=== PATIENT | female | born 1975 | race Hispanic/Latino ===

== ENCOUNTER 2019-07-11 15:32 | Emergency (ER) | payer SELFPAY ==
[2019-07-11] MEDS ORDERED: NA CHLORIDE 0.9% 1,000 ML ONE (16:43)
[2019-07-11 17:02] LABS: Urine Blood NEGATIVE (NEG); Urine Glucose 3+ (NEG); Urine Protein NEGATIVE (NEG); Urine pH 5.5 (5.0-7.0)
[2019-07-11 17:04] LABS: Basophils % 0.4 % (0-1.3); Hematocrit 35.3 % (36.0-45.0); Lymphocytes % 22.1 % (15.3-44.8); MPV 9.3 fL (7.6-11.3); RBC Red Blood Cell Count 5.15 M/uL (3.86-4.86)
[2019-07-11 17:15] LABS: ALT/SGPT 106 U/L (12-78); AST/SGOT 105 U/L (15-37); Albumin 3.5 g/dL (3.4-5.0); Alkaline Phosphatase 134 U/L (45-117); BUN Blood Urea Nitrogen 8 mg/dL (7-18); Bicarbonate 24 mmol/L (21-32); Bilirubin Total 0.1 mg/dL (0.2-1.0); Glucose Level 298 mg/dL (74-106); Potassium 3.7 mmol/L (3.5-5.1); Protein, Total 6.8 g/dL (6.4-8.2); Sodium Level 138 mmol/L (136-145)
[2019-07-11 17:33] LABS: Lipase 114 U/L (73-393)
[2019-07-11 17:44] LABS: Blood Morphology Comment NOTED (NOT SEEN); Platelet Estimate ADEQ; Urine White Blood Cell Casts OK
--- NOTE | 2019-07-11 17:45 | RAD REPORT ---
EXAM DESCRIPTION: RAD - Chest Pa And Lat (2 Views) - 07/11/2019 5:12 pm CLINICAL HISTORY: COUGHcough, dizziness, diabetes COMPARISON: None. TECHNIQUE: PA and lateral views of the chest were obtained. FINDINGS: The lungs are clear. Heart size is normal and central vasculature is within normal limit s. No pleural effusion or pneumothorax seen. No acute bony finding noted. No aortic abnormality. IMPRESSION: No acute cardiopulmonary process.
--- NOTE | 2019-07-11 18:53 | ER ---
Nurse's Notes [facility] Name: Annie Cunha Age: 44 yrs Sex: Female : 1975 Arrival Date: 07/11/2019 Time: 15:34 Bed 18 Private MD: Diagnosis: Acute upper respiratory infection, unspecified;Headache;Malaise and fatigue;Hyperglycemia, unspecified Presentation: 07/11 16:00 Presenting complaint: Patient states: Dizziness and headache for the past 2 days. aj1 Denies recent head injury. Denies fever. Patient states that she is diabetic but she stopped taking her diabetes medication because she did not feel she was having any problems with her diabetes anymore. Transition of care: patient was not received from another setting of care. Onset of symptoms was July 11, 2019. Risk Assessment: Do you want to hurt yourself or someone else? Patient reports no desire to harm self or others. Initial Sepsis Screen: Does the patient meet any 2 criteria? HR > 90 bpm. No. Patient's initial sepsis screen is negative. Does the patient have a suspected source of infection? No. Patient's initial sepsis screen is negative. Care prior to arrival: None. 16:00 Method Of Arrival: Ambulatory aj1 16:00 Acuity: WILIAN 3 aj1 Triage Assessment: 16:05 Headache History: Denies prior headaches. General: Appears in no apparent distress. aj1 comfortable, Behavior is calm, cooperative, appropriate for age. Pain: Complains of pain in top of head, right nondenominational and left nondenominational Pain currently is 9 out of 10 on a pain scale. Pain began 2-3 days ago. Also complains of nausea. Neuro: Level of Consciousness is awake, alert, obeys commands, Oriented to person, place, time, situation, Moves all extremities. Weakness Gait is steady, Speech is normal, Facial symmetry appears normal, Reports dizziness, headache. Cardiovascular: Patient's skin is warm and dry. Respiratory: Airway is patent Respiratory effort is even, unlabored, Respiratory pattern is regular, symmetrical. 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 - Social history:: Smoking status: Patient/guardian denies using tobacco. - Ebola Screening: : Patient denies travel to an Ebola-affected area in the 21 days before illness onset. Screenin:30 Abuse screen: Denies threats or abuse. Nutritional screening: No deficits noted. em Tuberculosis screening: No symptoms or risk factors identified. Fall Risk None identified. Assessment: 16:30 General: Appears in no apparent distress. comfortable, Behavior is calm, cooperative, em Reports fever for 1-2 days, fatigue for 2-3 days. Pain: Complains of pain in left nondenominational and right nondenominational and top of head Pain currently is 0 out of 10 on a pain scale. at worst was 9 out of 10 on a pain scale. Pain began 2-3 days ago. Neuro: Level of Consciousness is awake, alert, obeys commands, Oriented to person, place, time, situation, Appropriate for age Farmer Vegetable are equal bilaterally Moves all extremities. Gait is steady, Speech is normal, Facial symmetry appears normal, Pupils are PERRLA, Intact Reports dizziness, headache. Cardiovascular: Reports shortness of breath, Denies chest pain, Capillary refill < 3 seconds Patient's skin is warm and dry. Respiratory: Airway is patent Respiratory effort is even, unlabored, Respiratory pattern is regular, symmetrical, Breath sounds are clear bilaterally. GI: Abdomen is flat, Reports nausea, Patient currently denies vomiting. Derm: Skin is intact, is healthy with good turgor, Skin is pink, warm \T\ dry. Musculoskeletal: Capillary refill < 3 seconds, Range of motion: intact in all extremities. 16:30 Reassessment: I agree with assessment completed by Alessandro Thrasher LVN . aa5 17:30 Reassessment: Patient appears in no apparent distress at this time. Patient and/or em family updated on plan of care and expected duration. Pain level reassessed. Patient is alert, oriented x 3, equal unlabored respirations, skin warm/dry/pink. 18:44 Reassessment: Patient appears in no apparent distress at this time. Patient and/or em family updated on plan of care and expected duration. Pain level reassessed. Patient is alert, oriented x 3, equal unlabored respirations, skin warm/dry/pink. Patient states feeling better. Vital Signs: 16:05 BP 152 / 90; Pulse 85; Resp 18; Temp 97.7; Pulse Ox 100% on R/A; Pain 9/10; aj1 17:25 BP 108 / 89; Pulse 77; Resp 18; Pulse Ox 99% on R/A; em 18:30 BP 105 / 65; Pulse 68; Resp 18; Pulse Ox 99% on R/A; Pain 0/10; em ED Course: 15:34 Patient arrived in ED. as 15:54 [facility] rh1 15:54 Saulo Rudd MD is Attending Physician. rh1 16:03 Triage completed. aj1 16:26 Alessandro Thrasher LVN is Primary Nurse. em 16:30 Patient has correct armband on for positive identification. Bed in low position. Call em light in reach. Pulse ox on. NIBP on. 16:30 Arm band placed on. em 16:48 Initial lab(s) drawn, by me, sent to lab. Urine collected: clean catch specimen, Flu lt1 and/or RSV swab sent to lab. Inserted saline lock: 20 gauge in right antecubital area, using aseptic technique. 16:48 Flu Sent. lt1 17:10 Chest Pa And Lat (2 Views) XRAY In Process Unspecified. EDMS 19:01 No provider procedures requiring assistance completed. IV discontinued, intact, em bleeding controlled, No redness/swelling at site. Pressure dressing applied. Administered Medications: 16:50 Drug: NS 0.9% 1000 ml Route: IV; Rate: 1000 ml; Site: right antecubital; em 18:30 Follow up: Response: No adverse reaction; IV Status: Completed infusion; IV Intake: em 1000ml Point of Care Testing: Ranges: Intake: 18:30 IV: 1000ml; Total: 1000ml. em Outcome: 18:51 Discharge ordered by . rh1 19:01 Discharged to home ambulatory, with family. em 19:01 Condition: good 19:01 Discharge instructions given to patient, family, Instructed on discharge instructions, follow up and referral plans. medication usage, Demonstrated understanding of instructions, follow-up care. 19:03 Patient left the ED. em Signatures: Dispatcher [employer] EDMS Bev Copeland RN RN aj1 Alessandro Thrasher LVN LVN em Maribel Schroeder Audri, RN RN aa5 Corinne Landry, HEAD AND NECK SURGEON HEAD AND NECK SURGEON rh1 Jessica Naylor lt1 Corrections: (The following items were deleted from the chart) 16:05 16:00 Presenting complaint: Patient states: Dizziness and headache for the past 2 days. aj1 Denies recent head injury. Denies fever. aj1 17:24 16:30 General: Appears in no apparent distress. comfortable, Behavior is calm, em cooperative, Reports fever for 1-2 days, em
--- NOTE | 2019-07-11 18:53 | EDPHYS ---
Physician Documentation [facility] Name: Annie Cunha Age: 44 yrs Sex: Female : 1975 Arrival Date: 07/11/2019 Time: 15:34 Bed 18 Private MD: ED Physician Saulo Rudd HPI: 07/11 16:12 This 44 yrs old Female presents to ER via Ambulatory with complaints of rh1 Headache, Dizziness, Weakness. 16:12 The patient complains of pain to the right sabianism and left sabianism. The patient rh1 describes the headache as intermittent, a pressure. Onset: The symptoms/episode began/occurred this morning, and improved just prior to arrival. Associated signs and symptoms: Pertinent positives: dizziness, malaise, sinus congestion, weakness, Pertinent negatives: altered mental status, fever, paresthesias, Photophobia rash, vision changes, vision loss, vertigo. Severity of symptoms: At its worst the pain was moderate, a " 9" out of "10", in the emergency department the pain has resolved, and did so just prior to arrival, took ibuprofen GRANULATING BLENDER. Headache History: The patient has had previous headaches. The symptoms are alleviated by over the counter pain medication, the symptoms are aggravated by movement. The patient has not experienced similar symptoms in the past. The patient has not recently seen a physician. Began with bi temporal EDMONDS, nasal congestion, drainage, generalized weakness, fatigue 2 days ago. Reports EDMONDS is intermittent, and when increased has off balance dizziness. Currently EDMONDS resolved. Also feels her urine is hot, not pain/dysuria per se. No fever, vomiting, diarrhea, abd pain, vision changes, focal weakness, and paresthesias only in bilateral plantar feet. Has not been taking DM medications for approx. 1 year as she was having hypoglycemic episodes.. 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 - Social history:: Smoking status: Patient/guardian denies using tobacco. - Ebola Screening: : Patient denies travel to an Ebola-affected area in the 21 days before illness onset. ROS: 16:12 Constitutional: Negative for fever rh1 16:12 Eyes: Negative for acute changes. 16:12 ENT: Positive for ear pain, nasal discharge, sinus congestion, Negative for foreign body sensation, sore throat. 16:12 Neck: Negative for pain with movement, pain at rest. 16:12 Cardiovascular: Negative for chest pain, edema, palpitations. 16:12 Respiratory: Positive for cough, with no reported sputum, Negative for shortness of breath, wheezing. 16:12 Abdomen/GI: Positive for nausea, Negative for abdominal pain, vomiting, diarrhea. 16:12 Back: Negative for decreased range of motion, pain at rest, pain with movement, radiated pain. 16:12 : Negative for burning with urination. 16:12 MS/extremity: Positive for paresthesias, bilateral plantar feet, Negative for decreased range of motion, pain. 16:12 Skin: Negative for erythema, pallor, rash. 16:12 Neuro: Positive for dizziness, headache, weakness, generalized weakness, Negative for Exam: 16:12 Constitutional: This is a well developed, well nourished patient who is awake, alert, rh1 and in no acute distress. 16:12 Neck: Trachea midline, and no cervical lymphadenopathy. Supple, full range of motion without nuchal rigidity. No Meningismus. Chest/axilla: Normal chest wall appearance and motion. Nontender with no deformity. No lesions are appreciated. Cardiovascular: Regular rate and rhythm with a normal S1 and S2. No gallops, murmurs, or rubs. No JVD. No pulse deficits. Respiratory: Lungs have equal breath sounds bilaterally, clear to auscultation. No rales, rhonchi or wheezes noted. No increased work of breathing. Abdomen/GI: Soft, non-tender, with normal bowel sounds. No distension. No guarding or rebound. No evidence of tenderness throughout. Back: No spinal tenderness. No costovertebral tenderness. Full range of motion. Skin: Warm, dry with normal turgor. Normal color with no rashes, no lesions, and no evidence of cellulitis. MS/ Extremity: Pulses equal, no cyanosis. Neurovascular intact. Full, normal range of motion. 16:12 Head/face: Exam is negative for ecchymosis, erythema, swelling, Sinus tenderness, that is mild, is located over the right frontal sinus, left frontal sinus, right maxillary sinus and left maxillary sinus. 16:12 Eyes: Pupils: no acute changes, normal size, normal reaction to light, equal, right pupil is approximately 3 mm(s), left pupil is approximately 3 mm(s), Extraocular movements: intact throughout, Nystagmus: is not appreciated. 16:12 ENT: External ear(s): are unremarkable, Ear canal(s): are normal, clear, TM's: are normal, no evidence of bulging, no dullness, no erythema, normal bony landmarks, normal mobility, Nose: is normal, no drainage, no edema, no erythema, Mouth: is normal, no lip abnormalities, no mucosal abnormalities, Posterior pharynx: is normal, airway is patent, no erythema, no exudate, no peritonsilar mass, no pooling of secretions, no swelling, normal tonsil apperance, normal sized tonsils, normal uvula appearance, normal uvula size. 16:12 Neuro: Orientation: is normal, to person, place \\T\\ time. Mentation: is normal, lucid, able to follow commands, Cranial nerves: CN II- XII are normal as tested, Motor: is normal, moves all fours, strength is 5/5 in all extremities, Sensation: is normal, no obvious gross deficits, numbness, is not appreciated, tingling, is not appreciated, Gait: is steady, at a normal pace, without difficulty. Vital Signs: 16:05 BP 152 / 90; Pulse 85; Resp 18; Temp 97.7; Pulse Ox 100% on R/A; Pain 9/10; aj1 17:25 BP 108 / 89; Pulse 77; Resp 18; Pulse Ox 99% on R/A; em 18:30 BP 105 / 65; Pulse 68; Resp 18; Pulse Ox 99% on R/A; Pain 0/10; em MDM: 16:12 Patient medically screened. rh1 18:48 Data reviewed: vital signs, nurses notes, lab test result(s), radiologic studies, plain rh1 films, and as a result, I will discharge patient. Data interpreted: Pulse oximetry: on room air is 99 %. Interpretation: normal. Counseling: I had a detailed discussion with the patient and/or guardian regarding: the historical points, exam findings, and any diagnostic results supporting the discharge/admit diagnosis, lab results, radiology results, the need for outpatient follow up, a family practitioner, to return to the emergency department if symptoms worsen or persist or if there are any questions or concerns that arise at home. Response to treatment: the patient's symptoms have mildly improved after treatment, denies any EDMONDS. ED course: reports hx of liver enzyme elevation; discussed recommendation to take metformin which she reports she has at home, and follow up with PCP. 07/11 16:23 Order name: Glucose, Ancillary Testing; Complete Time: 16:26 [facility] 07/11 16:28 Order name: Flu; Complete Time: 17:21 [facility] 07/11 16:28 Order name: CBC with Diff; Complete Time: 17:50 [facility] 07/11 16:28 Order name: CMP; Complete Time: 17:34 [facility] 07/11 16:28 Order name: Ketone, Serum; Complete Time: 17:34 [facility] 07/11 16:54 Order name: Urine Dipstick--Ancillary (enter results); Complete Time: 17:04 [facility] 07/11 16:28 Order name: Urine Dipstick-Ancillary (obtain specimen); Complete Time: 16:48 [facility] 07/11 16:28 Order name: Chest Pa And Lat (2 Views) XRAY; Complete Time: 17:50 [facility] 07/11 16:30 Order name: EKG; Complete Time: 16:31 [facility] 07/11 16:54 Order name: Urine --Ancillary (enter results); Complete Time: 17:04 [facility] 07/11 17:06 Order name: CBC Smear Scan; Complete Time: 17:50 [facility] 07/11 17:29 Order name: Lipase; Complete Time: 17:34 [facility] 07/11 16:28 Order name: Urine Test (obtain specimen); Complete Time: 16:48 [facility] 07/11 16:28 Order name: IV Saline Lock; Complete Time: 16:48 [facility] Administered Medications: 16:50 Drug: NS 0.9% 1000 ml Route: IV; Rate: 1000 ml; Site: right antecubital; em 18:30 Follow up: Response: No adverse reaction; IV Status: Completed infusion; IV Intake: em 1000ml Point of Care Testing: Ranges: Critical Glucose Levels:Adult <50 mg/dl or >400 mg/dl <40 mg/dl or >180 mg/dl Disposition: 07/11/19 18:51 Discharged to Home. Impression: Acute upper respiratory infection, unspecified, Headache, Malaise and fatigue, Hyperglycemia, unspecified. - Condition is Stable. - Discharge Instructions: Hyperglycemia, Upper Respiratory Infection, Adult, General Headache Without Cause, [id number], Cough, Adult. - Medication Reconciliation Form, Thank You Letter, Antibiotic Education, Prescription Opioid Use form. - Follow up: Private Physician; When: 1 - 2 days; Reason: Recheck today's complaints, Continuance of care, Re-evaluation by your physician. Follow up: Emergency Department; When: As needed; Reason: Fever > 102 F, If symptoms return, Trouble breathing, Worsening of condition. - Problem is new. - Symptoms have improved. - Notes: 1. Take nyquil, mucinex, and/or sudafed for pressure and nasal congestion, drainage. Also can use nasal saline rinses as needed. 2. Take your diabetes medication as prescribed. 3. Follow up with your primary doctor regarding your blood sugar, as well as the elevated liver enzymes. Addendum: 07/13/2019 06:59 Co-signature as Attending Physician, Saulo Rudd MD I agree with the assessment and c edmonds plan of care. Signatures: Dispatcher [employer] [facility] Bev Copeland RN RN aj1 Saulo Rudd MD MD cha Munoz, Edgar, FACSIMILE MACHINE OPERATOR FACSIMILE MACHINE OPERATOR em Corinne Landry, CYBER SYSTEMS ENGINEER CYBER SYSTEMS ENGINEER rh1 Corrections: (The following items were deleted from the chart) 07/11 17:10 16:12 Began with bi temporal EDMONDS, nasal congestion, drainage, generalized weakness, rh1 fatigue 2 days ago. Reports EDMONDS is intermittent, and when increased has off balance dizziness. Currently EDMONDS resolved. Also feels her urine is hot, not pain/dysuria per se. No fever, vomiting, diarrhea, abd pain, vision changes, focal weakness, and paresthesias only in bilateral plantar feet.. rh1 17:28 17:26 LIPASE+C.LAB.BRZ ordered. [facility] 19:03 18:51 07/11/2019 18:51 Discharged to Home. Impression: Acute upper respiratory em infection, unspecified; Headache; Malaise and fatigue; Hyperglycemia, unspecified. Condition is Stable. Forms are Medication Reconciliation Form, Thank You Letter, Antibiotic Education, Prescription Opioid Use. Follow up: Private Physician; When: 1 - 2 days; Reason: Recheck today's complaints, Continuance of care, Re-evaluation by your physician. Follow up: Emergency Department; When: As needed; Reason: Fever > 102 F, If symptoms return, Trouble breathing, Worsening of condition. Problem is new. Symptoms have improved. rh1
[2019-07-11 19:08] VITALS: TEMP 97.7
[2019-07-11 19:09] VITALS: O2SAT 99
[2019-07-11 19:11] VITALS: BP 105/65
--- NOTE | 2019-07-12 07:06 | EKG ---
Test Date: 2019-07-11 Test Time: 16:56:54 Low Voltage Electrician: LMT MEASUREMENT RESULTS: Intervals: Rate: 73 MN: 160 QRSD: 84 QT: 412 QTc: 453 [place]: P: 61 MN: 160 QRS: 65 T: 51 INTERPRETIVE STATEMENTS: Normal sinus rhythm with sinus arrhythmia normal ECG No previous ECG available for comparison Electronically Signed On 07-12-19 07:06:29 MECHANICAL ESTIMATOR by Milad Morales
== END 2019-07-11 19:03 | disposition home or self-care (01) ==
LOC: ER 15:32
DX: J06.9 Acute upper respiratory infection, unspecified (principal); R51 Headache; R53.81 Other malaise; R53.83 Other fatigue; E11.65 Type 2 diabetes mellitus with hyperglycemia
CPT/HCPCS: 36415; 71046; 80053; 81003; 81025; 82010; 82947; 83690; 85025; 87804; 93005; 96360; 96361; 99284; J7030

== ENCOUNTER 2022-05-09 21:49 | Emergency (ER) | payer SELFPAY ==
--- OUTSIDE RECORDS SUMMARY | 2022-05-09 21:51 | XMS REPORT | Continuity of Care Document ---
:1975 Author Organization [facility] t Address [address] [place] [address] Dr. Suarez [address] [place] [id number] Care Team Providers Name Role Phone RIKA Attending Clinician Unavailable RIKA Admitting Clinician Unavailable Problems This patient has no known problems. Allergies, Adverse Reactions, Alerts This patient has no known allergies or adverse reactions. Medications This patient has no known medications. Procedures This patient has no known procedures. Encounters Start End Encounter Admission Attending Care Care Encounter Source Date/Time Date/Time Type Type Clinicians Facility Department ID 2022-03-07 2022-03-07 Outpatient [facility] [id number] 05:30:00 05:30:00 0714 [address] [facility] Program Results This patient has no known results.
[2022-05-09] MEDS ORDERED: NA CHLORIDE 0.9% 1,000 ML ONE (22:49)
[2022-05-09 23:05] LABS: Absolute Lymphocytes (CBC) 1.7 K/uL (0.7-4.9); Hematocrit 30.2 % (36.0-45.0); Lymphocytes % 14.6 % (15.3-44.8); MCV 63.6 fL (80-100); MPV 7.8 fL (7.6-11.3); RBC Red Blood Cell Count 4.74 M/uL (3.86-4.86)
[2022-05-09 23:17] LABS: SARS-CoV-2 Antigen Rapid Res Negative (Negative)
[2022-05-09 23:22] LABS: Urine Blood Negative (Negative); Urine Glucose 1+ (Negative); Urine Protein Trace (Negative); Urine Specific Gravity >=1.030 (1.005-1.030); Urine pH 5.5 (5.0-7.0)
[2022-05-09 23:22] LABS: BUN Blood Urea Nitrogen 11 mg/dL (7-18); Bicarbonate 27 mmol/L (21-32); Glomerular Filtration Rate 116 ml/min (=/>90); Glucose Level 194 mg/dL (74-106); Potassium 3.5 mmol/L (3.5-5.1); Sodium Level 139 mmol/L (136-145)
[2022-05-09 23:25] LABS: Troponin High Sensitivity < 3.0 pg/mL (<58.9)
[2022-05-09 23:32] LABS: Urine Bacteria <20 /HPF (<20); Urine Mucus 2+ /HPF (None Seen)
[2022-05-09 23:37] LABS: Blood Morphology Comment NOTED (NOT SEEN); Hypochromasia 1+; Platelet Estimate ADEQ; Platelets, Giant FEW; White Blood Cell Scan OK (OK)
[2022-05-10] MEDS ORDERED: MECLIZINE HCL 12.5 MG TAB ONE (01:09)
--- NOTE | 2022-05-10 01:48 | ER ---
Nurse's Notes [facility] Name: Annie Cunha Age: 47 yrs Sex: Female : 1975 Arrival Date: 05/09/2022 Time: 21:53 Bed 13 Private MD: Diagnosis: Dizziness and giddiness Presentation: 05/09 22:45 Chief complaint: Patient's son or daughter states: "She has had a headache since this tw5 morning, but the dizziness started about an hour ago.". Coronavirus screen: Vaccine status: Patient reports being unvaccinated. Ebola Screen: Patient negative for fever greater than or equal to 101.5 degrees Fahrenheit, and additional compatible Ebola Virus Disease symptoms Patient denies exposure to infectious person. Patient denies travel to an Ebola-affected area in the 21 days before illness onset. Initial Sepsis Screen: Does the patient meet any 2 criteria? Altered Mental Status. Does the patient have a suspected source of infection? No. Patient's initial sepsis screen is negative. Risk Assessment: Do you want to hurt yourself or someone else? Patient reports no desire to harm self or others. Onset of symptoms was May 09, 2022 at 09:30. 22:45 Method Of Arrival: Wheelchair tw5 22:45 Acuity: WILIAN 3 tw5 Triage Assessment: 22:49 General: Appears in no apparent distress. Behavior is drowsy. Pain: Pain currently is 7 tw5 out of 10 on a pain scale. GI: Reports nausea. 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 - Social history:: Smoking status: Patient denies any tobacco usage or history of. - Family history:: not pertinent. - Hospitalizations: : No recent hospitalization is reported. Screenin:52 Abuse screen: Denies threats or abuse. Denies injuries from another. Nutritional tw5 screening: No deficits noted. Tuberculosis screening: No symptoms or risk factors identified. Fall Risk None identified. Assessment: 22:30 General: Appears in no apparent distress. Behavior is calm, cooperative. Pain: Denies ha1 pain. Neuro: Level of Consciousness is awake, alert, obeys commands, Oriented to person, place, time, situation. Respiratory: Airway is patent Trachea midline Respiratory effort is even, unlabored, Respiratory pattern is regular, symmetrical. GI: Abdomen is flat, non-distended, Reports nausea, vomiting. 23:30 Reassessment: Patient appears in no apparent distress at this time. Patient and/or ha1 family updated on plan of care and expected duration. Pain level reassessed. Patient is alert, oriented x 3, equal unlabored respirations, skin warm/dry/pink. 05/10 00:05 Reassessment: Patient and/or family updated on plan of care and expected duration. Pain ha1 level reassessed. going to CT. 01:08 Reassessment: Patient and/or family updated on plan of care and expected duration. Pain ha1 level reassessed. Patient is alert, oriented x 3, equal unlabored respirations, skin warm/dry/pink. Patient denies pain at this time. 02:15 Reassessment: Patient and/or family updated on plan of care and expected duration. Pain ha1 level reassessed. Patient is alert, oriented x 3, equal unlabored respirations, skin warm/dry/pink. Patient denies pain at this time. Patient states feeling better. Patient states symptoms have improved. Vital Signs: 05/09 22:35 BP 142 / 79; Pulse 84; Resp 16; Pulse Ox 97% on R/A; ha1 22:45 BP 138 / 80; Pulse 79; Resp 18; Temp 98; Pulse Ox 97% on R/A; Weight 56.7 kg; Height 5 tw5 ft. 1 in. (154.94 cm); Pain 7/10; 23:30 BP 114 / 63; Pulse 79; Resp 16 S; Pulse Ox 99% on R/A; ha1 05/10 00:05 BP 123 / 69; Pulse 89; Resp 16 S; Pulse Ox 99% on R/A; ha1 01:05 BP 117 / 69; Pulse 87; Resp 17 S; Pulse Ox 100% on R/A; ha1 02:15 BP 112 / 65; Pulse 86; Resp 16 S; Pulse Ox 100% on R/A; ha1 05/09 22:45 Body Mass Index 23.62 (56.70 kg, 154.94 cm) tw5 05/09 22:45 headahce tw5 ED Course: 21:53 Patient arrived in ED. ja2 21:59 Tomy Chan MD is Attending Physician. rn 22:34 Arlette Rowland RN is Primary Nurse. ha1 22:35 Inserted saline lock: 20 gauge in right antecubital area, using aseptic technique. ha1 Blood collected. 22:49 Triage completed. tw5 22:49 Arm band placed on. tw5 22:52 Placed in gown. Client placed on continuous cardiac and pulse oximetry monitoring. NIBP tw5 monitoring applied. 22:57 SARS RAPID Sent. ha1 23:30 Warm blanket given. ha1 23:31 Urine Microscopic Only Sent. kd3 05/10 00:26 CT Head Brain wo Cont In Process Unspecified. EDMS 00:34 CT Head Angio In Process Unspecified. EDMS 01:30 Door closed. Noise minimized. Lights dimmed. ha1 01:47 Lasha Mack MD is Referral Physician. rn 02:31 No provider procedures requiring assistance completed. ha1 02:31 IV discontinued, intact, bleeding controlled, No redness/swelling at site. Pressure ha1 dressing applied. Administered Medications: 05/09 22:58 Drug: NS 0.9% 1000 ml Route: IV; Rate: 1000 ml; Site: right antecubital; ha1 05/10 02:29 Follow up: Response: No adverse reaction; IV Status: Completed infusion; IV Intake: ha1 1000ml 01:08 Drug: Meclizine 50 mg Route: PO; ha1 01:35 Follow up: Response: No adverse reaction ha1 Medication: 02:32 VIS not applicable for this client. ha1 Intake: 02:29 IV: 1000ml; Total: 1000ml. ha1 Outcome: 01:47 Discharge ordered by . rn 02:31 Discharged to home via wheelchair. ha1 02:31 Condition: stable 02:31 Discharge instructions given to patient, family, Instructed on discharge instructions, follow up and referral plans. medication usage, Demonstrated understanding of instructions, follow-up care, medications, Prescriptions given X 1. 02:32 Patient left the ED. ha1 Signatures: Dispatcher [employer] EDMS Tomy Chan MD MD rn Sonal Aggarwal Tiffany 5 Caitlin Allen RN RN kd3 Arlette Rowland RN RN ha1
--- NOTE | 2022-05-10 01:48 | EDPHYS ---
Physician Documentation [facility] Name: Annie Cunha Age: 47 yrs Sex: Female : 1975 Arrival Date: 05/09/2022 Time: 21:53 Bed 13 Private MD: ED Physician Tomy Chan HPI: 05/09 22:44 This 47 yrs old Female presents to ER via Unassigned with complaints of rn headache, fatigue, generalized weakness. 22:44 The patient presents with feeling faint, generalized weakness. Onset: The rn symptoms/episode began/occurred this morning. Modifying factors: The symptoms are alleviated by nothing, the symptoms are aggravated by movement of head, standing up. Associated signs and symptoms: Pertinent negatives: abdominal pain, chest pain, focal weakness, seizure, shortness of breath, syncope, vomiting. Severity of symptoms: At their worst the symptoms were moderate in the emergency department the symptoms are unchanged. The patient has experienced similar episodes in the past. The patient has not recently seen a physician. Reports headache and generalized weakness that began in morning, not improving. Reports feels dizzy and lightheaded. No syncope. No chest pain/sob/abd pain/vomiting/diarrhea. Not sure what glucose is. Has not run out of medications. No trauma or head injury. Has happened before and told was a glucose issue. . 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 - Social history:: Smoking status: Patient denies any tobacco usage or history of. - Family history:: not pertinent. - Hospitalizations: : No recent hospitalization is reported. ROS: 22:44 Constitutional: Negative for fever, chills, and weight loss, Eyes: Negative for injury, rn pain, redness, and discharge, ENT: Negative for injury, pain, and discharge, Neck: Negative for injury, pain, and swelling, Cardiovascular: Negative for chest pain, palpitations, and edema, Respiratory: Negative for shortness of breath, cough, wheezing, and pleuritic chest pain, Abdomen/GI: Negative for abdominal pain, vomiting, diarrhea, and constipation, Back: Negative for injury and pain, MS/Extremity: Negative for injury and deformity, Skin: Negative for injury, rash, and discoloration, Neuro: Negative for numbness, tingling, and seizure. Exam: 22:47 Constitutional: This is a well developed, well nourished patient who is awake, alert, rn appears to be generally weak, family member helped her into wheelchair in lobby where I rolled her to triage myself. Slumps in wheelchair but then able to flip foot rests without difficulty and very easily. Head/Face: Normocephalic, atraumatic. Eyes: Pupils equal round and reactive to light, extra-ocular motions intact. ENT: dry MM Neck: Trachea midline, no thyromegaly or masses palpated, and no cervical lymphadenopathy. Supple, full range of motion without nuchal rigidity, or vertebral point tenderness. No Meningismus. Cardiovascular: Regular rate and rhythm. No pulse deficits. Respiratory: No increased work of breathing, no retractions or nasal flaring. Abdomen/GI: Soft, non-tender Skin: Warm, dry MS/ Extremity: Pulses equal, no cyanosis. Neuro: Awake and alert, GCS 15, oriented to person, place, time, and situation. Cranial nerves II-XII grossly intact. Motor strength 4/5 in all extremities. Sensory grossly intact. 23:10 ECG was reviewed by the Attending Physician. rn Vital Signs: 22:35 BP 142 / 79; Pulse 84; Resp 16; Pulse Ox 97% on R/A; ha1 22:45 BP 138 / 80; Pulse 79; Resp 18; Temp 98; Pulse Ox 97% on R/A; Weight 56.7 kg; Height 5 tw5 ft. 1 in. (154.94 cm); Pain 7/10; 23:30 BP 114 / 63; Pulse 79; Resp 16 S; Pulse Ox 99% on R/A; ha1 16 00:05 BP 123 / 69; Pulse 89; Resp 16 S; Pulse Ox 99% on R/A; ha1 01:05 BP 117 / 69; Pulse 87; Resp 17 S; Pulse Ox 100% on R/A; ha1 02:15 BP 112 / 65; Pulse 86; Resp 16 S; Pulse Ox 100% on R/A; ha1 05/09 22:45 Body Mass Index 23.62 (56.70 kg, 154.94 cm) tw5 05/09 22:45 headahce tw5 MDM: 21:59 Patient medically screened. rn 05/10 01:45 Differential diagnosis: cardiac arrhythmia, CVA, generalized weakness, rn hyperventilation, hypovolemia, idiopathic dizziness, TIA, vertigo. Data reviewed: vital signs, nurses notes, old medical records, lab test result(s), EKG, radiologic studies, CT scan, and as a result, I will discharge patient. Counseling: I had a detailed discussion with the patient and/or guardian regarding: the historical points, exam findings, and any diagnostic results supporting the discharge/admit diagnosis, lab results, radiology results, the need for outpatient follow up, to return to the emergency department if symptoms worsen or persist or if there are any questions or concerns that arise at home. Response to treatment: the patient's symptoms have markedly improved after treatment, and as a result, I will discharge patient. Special discussion: I discussed with the patient/guardian in detail that at this point there is no indication for admission to the hospital. It is understood, however, that if the symptoms persist or worsen the patient needs to return immediately for re-evaluation. Based on the history and exam findings, there is no indication for further emergent testing or inpatient evaluation. ED course: Pt feels much better after fluids and meclizine. Will dc home with neuro f/u. Return precautions given and understood. CT angio head neg. Has had this before. + hx of anemia and denies dark stool or blood in stool. . 05/09 22:29 Order name: CBC with Diff; Complete Time: 23:39 rn 05/09 22:29 Order name: Basic Metabolic Panel; Complete Time: 23:38 rn 05/09 22:29 Order name: Urine Microscopic Only; Complete Time: 23:38 rn 05/09 22:29 Order name: Troponin High Sensitivity; Complete Time: 23:38 rn 05/09 22:30 Order name: SARS RAPID; Complete Time: 23:38 rn 05/09 23:09 Order name: CBC Smear Scan; Complete Time: 23:39 EDMS 05/09 22:29 Order name: CT Head Brain wo Cont rn 05/09 22:29 Order name: IV Start; Complete Time: 23:31 rn 05/09 22:29 Order name: EKG; Complete Time: 22:30 rn 05/09 22:47 Order name: CT Head Angio rn 05/09 23:23 Order name: Glucose, Ancillary Testing; Complete Time: 23:38 EDMS 05/09 23:23 Order name: Urine Dipstick-Ancillary; Complete Time: 23:38 EDMS 05/09 22:29 Order name: Urine Dipstick-Ancillary (obtain specimen); Complete Time: 23:31 rn 05/09 22:29 Order name: Glucose Level; Complete Time: 23:31 rn 05/09 22:29 Order name: EKG - Nurse/Tech; Complete Time: 23:31 rn EC/15 23:10 Rate is 75 beats/min. Rhythm is regular. QRS Aspers is Normal. [place] interval is normal. QRS rn interval is normal. QT interval is normal. No Q waves. T waves are Normal. No ST changes noted. Clinical impression: Normal ECG. Interpreted by me. Reviewed by me. Administered Medications: 22:58 Drug: NS 0.9% 1000 ml Route: IV; Rate: 1000 ml; Site: right antecubital; ha1 05/10 02:29 Follow up: Response: No adverse reaction; IV Status: Completed infusion; IV Intake: ha1 1000ml 01:08 Drug: Meclizine 50 mg Route: PO; ha1 01:35 Follow up: Response: No adverse reaction ha1 Disposition Summary: 05/10/22 01:47 Discharge Ordered Location: Home rn Problem: new rn Symptoms: have improved rn Condition: Stable rn Diagnosis - Dizziness and giddiness rn Followup: rn - With: Lasha Mack MD - When: As needed - Reason: Recheck today's complaints, Re-evaluation by your physician Discharge Instructions: - Discharge Summary Sheet rn - Dizziness rn - Vertigo rn Forms: - Medication Reconciliation Form rn - Thank You Letter rn - 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
--- NOTE | 2022-05-10 09:34 | RAD REPORT ---
EXAM DESCRIPTION: CT - Head Brain Wo Cont - 05/10/2022 12:23 am CLINICAL HISTORY: 47 years, Female, dizziness COMPARISON: 01/07/2017 FINDINGS: Multiple transaxial tomograms of the brain were obtained from the base of the skull to the vertex without contrast. 2-D multiplanar reformats and the coronal and sagittal plane were performed and reviewed. This exam was performed according to our departmental dose-optimization protocol, which includes auto mated exposure control, adjustment of the mA and/or kV according to patient size and/or use of iterat steffany reconstruction technique. Brain parenchyma as well as the enciso and white matter differentiation demonstrate to be unremarkable. There is no midline shift and/or mass effect. There is no evidence for acute hemorrhage. No focal ar eas of hypodensities. Lateral ventricles and cisterns displace normal appearance. No intra or ext ra axial fluid collections were seen. The calvarium is intact with no evidence for fracture. The visu alized portions of the paranasal sinuses and orbits demonstrate to be clear. IMPRESSION: No acute intracranial hemorrhage identified. Unremarkable CT scan of the head without contrast. Electronically signed by: Leon Wharton MD 05/10/2022 12:53 AM CDT Due to temporary technical issues with the PACS/Fluency reporting system, reports are being signed by the in house radiologists without review as a courtesy to insure prompt reporting. The interpreting radiologist is fully responsible for the content of the report.
--- NOTE | 2022-05-10 09:46 | RAD REPORT ---
EXAM DESCRIPTION: CT - Head angio - 05/10/2022 12:32 am CLINICAL HISTORY: 47 years, Female, headache, dizziness COMPARISON: Recent CT scan of the head performed earlier. TECHNIQUE: Multiple transaxial tomograms from the base of the skull through the vertex were performe d after administration of large bolus of IV contrast for complete opacification of the intracranial v essels. Subsequent 2-D and 3-D multiplanar reformats, volume rendering technique and maximum intensity projec tion images were generated and reviewed. Stenosis measurements were performed according to NASCET cri teria. This exam was performed according to our departmental dose-optimization protocol, which includes auto mated exposure control, adjustment of the mA and/or kV according to patient size and/or use of iterat steffany reconstruction technique. FINDINGS: Distal portions of the internal carotid arteries demonstrate to be patent with no evidence for significant occlusion/or stenosis. Intracranial circulation: Intracranial portions of the internal carotid arteries the cavernous sinus portions demonstrates no focal areas of significant stenosis. There is normal opacification within th e anterior circulation without evidence of intracranial aneurysm. There is slight hypoplastic right A 1 segment with normal patency of the anterior communicating system. Otherwise the anterior cerebral a rteries, middle cerebral arteries and its branches demonstrate normal opacification with no evidence for significant stenosis aneurysm and/or occlusion. There is normal venous drainage with no evidence for significant sinus vein thrombosis. Vertebrobasilar system: The vertebrobasilar system and TIRE TESTER demonstrate to be normal with no evidence for aneurysm and/or occlusion. Grossly the brain parenchyma demonstrate normal enciso-white matter differentiation with no evidence fo r mass effect and/or midline shift. There is no evidence for significant abnormal parenchymal enhance ment The skull base and intracranial structures demonstrate to be within normal limits. IMPRESSION: No evidence for significant stenosis, occlusion, aneurysm, or dissection in the intracra nial circulation. Slight hypoplastic right A1 segment with normal patency of the anterior communicating system. Otherwise unremarkable CT scan of the head with contrast. Electronically signed by: Leon Wharton MD 05/10/2022 12:58 AM CDT Due to temporary technical issues with the PACS/Fluency reporting system, reports are being signed by the in house radiologists without review as a courtesy to insure prompt reporting. The interpreting radiologist is fully responsible for the content of the report.
--- NOTE | 2022-05-10 12:30 | EKG ---
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
[2022-05-11 12:27] VITALS: TEMP 98
[2022-05-11 12:33] VITALS: O2SAT 100
[2022-05-11 12:35] VITALS: BP 112/65
== END 2022-05-10 02:32 | disposition home or self-care (01) ==
LOC: ER 21:49
DX: R42 Dizziness and giddiness (principal); R51.9 Headache, unspecified; E11.9 Type 2 diabetes mellitus without complications
CPT/HCPCS: 36415; 70450; 70496; 80048; 81003; 81015; 82947; 84484; 85025; 87811; 93005; 96360; 96361; 99284; J7030; J8597; Q9967

== ENCOUNTER 2023-12-14 12:53 | Emergency (ER) | payer SELFPAY ==
--- OUTSIDE RECORDS SUMMARY | 2023-12-14 12:55 | XMS REPORT | Continuity of Care Document ---
Author Name Unknown Address [address] [facility] [place] [address] [facility] thconnect Address [address] [facility] [address] [place] [address] Care Team Providers Care Recreation Leader Name Role Phone RIKA Attending Clinician Unavailable RIKA Admitting Clinician Unavailable Encounters Start Date/Time End Date/Time Encounter Type Admission Type Attending Clinicians Care Facility Care Department Encounter ID Source 2023-11-12 10:50:03 2023-11-12 10:50:03 Outpatient [facility] [id number] Ivan Edmond 2023-11-05 07:18:19 2023-11-05 07:18:19 Outpatient [facility] [id number] Ivan Edmond 2023-08-06 11:45:12 2023-08-06 11:45:12 Outpatient [facility] [id number] Ivan Edmond 2023-05-29 10:05:43 2023-05-29 10:05:43 Outpatient [facility] [id number] vIan Edmond 2023-03-12 09:20:32 2023-03-12 09:20:32 Outpatient [facility] [id number] Ivan Edmond 2023-03-05 14:27:41 2023-03-05 14:27:41 Outpatient [facility] [id number] Ivan Edmond 2023-02-24 11:04:03 2023-02-24 11:04:03 Outpatient [facility] [id number] Ivan Edmond 2023-02-19 08:28:58 2023-02-19 08:28:58 Outpatient [facility] [id number] Ivan Edmond 2022-03-07 05:30:00 2022-03-07 05:30:00 Outpatient [facility] [id number] Dimas fernández [facility] Program
--- NOTE | 2023-12-14 15:04 | ER ---
Nurse's Notes [facility] Name: Annie Cunha Age: 48 yrs Sex: Female : 1975 Arrival Date: 12/14/2023 Time: 12:53 Bed IW10 Private MD: Diagnosis: Presentation: 12/13 12:56 Coronavirus screen: Client denies travel out of the [place] in the last 14 days. At this ll1 time, the client does not indicate any symptoms associated with coronavirus-19. Ebola Screen: Patient denies travel to an Ebola-affected area in the 21 days before illness onset. Initial Sepsis Screen: Does the patient meet any 2 criteria? No. Patient's initial sepsis screen is negative. Does the patient have a suspected source of infection? No. Patient's initial sepsis screen is negative. Risk Assessment: Do you want to hurt yourself or someone else? Patient reports no desire to harm self or others. 13:02 Chief complaint: Patient states: Blood sugar fluctuating since . Taking ll1 medications as prescribed. No fever or N/V/D. Fingerstick 264 at home today. 105 yesterday after lunch. Onset of symptoms was December 11, 2023. 13:02 Method Of Arrival: Ambulatory ll1 13:02 Acuity: WILIAN 3 ll1 Triage Assessment: 13:00 General: Appears in no apparent distress. Behavior is calm, cooperative, appropriate ll1 for age. General: Reports fluctuating blood sugar. Pain: Denies pain. GI: Patient currently denies diarrhea, nausea, vomiting. Historical: - Allergies: 12:55 No Known Allergies; ll1 - PMHx: 12:55 Anemia; depressive disorder; Diabetes - NIDDM; diabetes mellitus; ll1 - PSHx: 12:55 section; ll1 - Immunization history:: Adult Immunizations up to date. - Infectious Disease History:: Denies. Assessment: 14:46 Reassessment: pt not in lobby. iw Vital Signs: 13:02 BP 132 / 75; Pulse 84; Resp 17; Temp 97.6; Pulse Ox 100% ; Weight 59.87 kg; Height 5 ll1 ft. 1 in. ; Pain 0/10; 13:02 Body Mass Index 24.94 (59.87 kg, 154.94 cm) ll1 13:02 Pain Scale: Adult ll1 ED Course: 12:54 Patient arrived in ED. rg4 12:56 Arm band placed on. ll1 13:00 Jakub Gold MD is Attending Physician. rt 13:04 Triage completed. ll1 14:59 [facility] jh7 14:59 Jakub Gold MD is Attending Physician. 7 Administered Medications: No medications were administered Outcome: 15:04 Patient left the ED. iw Signatures: Kathy Lan RN GELA Claudia Farmer rg4 Yajaira Wasserman RN RN 1 Krys Cherry FNP [employer] [facility] Jakub Gold MD MD rt
--- NOTE | 2023-12-14 15:04 | EDPHYS ---
Physician Documentation [facility] Name: Annie Cunha Age: 48 yrs Sex: Female : 1975 Arrival Date: 12/14/2023 Time: 12:53 Bed IW10 Private MD: ED Physician Historical: - Allergies: 12/13 12:55 No Known Allergies; ll1 - PMHx: 12:55 Anemia; depressive disorder; Diabetes - NIDDM; diabetes mellitus; ll1 - PSHx: 12:55 section; ll1 - Immunization history:: Adult Immunizations up to date. - Infectious Disease History:: Denies. Vital Signs: 13:02 BP 132 / 75; Pulse 84; Resp 17; Temp 97.6; Pulse Ox 100% ; Weight 59.87 kg; Height 5 ll1 ft. 1 in. ; Pain 0/10; 13:02 Body Mass Index 24.94 (59.87 kg, 154.94 cm) ll1 13:02 Pain Scale: Adult ll1 MDM: 14:46 ED course: Patient called from waiting room, no answer, I did not personally evaluate rt the patient.. Administered Medications: No medications were administered Disposition Summary: 12/14/23 15:04 Eloped Notes: Disposition: before being seen by provider iw Reason: unknown iw Signatures: Kathy Lan RN GELA iw Yajaira Wasserman RN RN ll1 Jakub Gold MD MD rt Corrections: (The following items were deleted from the chart) 14:46 14:02 Patient medically screened. rt rt
[2023-12-14 16:08] VITALS: BP 132/75; TEMP 97.6; O2SAT 100
== END 2023-12-14 15:04 | disposition left against medical advice (07) ==
LOC: ER 12:53
DX: Z53.21 Procedure and treatment not carried out due to patient leaving prior to being seen by health care provider (principal)
CPT/HCPCS: 99281